=== PATIENT | female | born 1980 | race Caucasian/White ===

== ENCOUNTER 2022-04-13 14:23 | Emergency (ER) | payer OTHER, SELFPAY ==
[2022-04-13 16:03] VITALS: BP 133/81; PULSE 100; RESP 16; TEMP 37.1; O2SAT 99; BMI 23.4
--- NOTE | 2022-04-13 21:38 | ED_ITS ---
HPI - General Adult General Chief complaint: Skin/Abscess/Foreign Body Stated complaint: Staph infection Time Seen by Provider: 04/13/22 20:25 Source: patient Mode of arrival: ambulatory Limitations: no limitations History of Present Illness HPI narrative: 41-year-old female presents to ED for re-evaluation of left thigh any of redness and tenderness as in present since . Patient states she shaved and then noticed redness with a slight opening with drainage. Patient went to urgent care on Tuesday and she states the provider squeezed pus discharge from the opening with her hands give her doxycycline and no other antibiotics. No other antibiotics were given. Patient denies being on any control pills, any leg swelling, calf pain, chest pain, pleurisy recent surgery, recent long travel, or shortness of breath. Patient states area of infection still the same since started on doxycycline with no other antibiotics. patient denies pleurisy. Related Data Previous Rx's Medication Instructions Recorded cephalexin 500 mg capsule 500 mg PO QID 7 days #28 caps 04/13/22 naproxen 500 mg tablet 500 mg PO BID PRN pain 10 days #20 04/13/22 tabs oxycodone 5 mg capsule 5 mg PO TID PRN pain 3 days #9 caps 04/13/22 Allergies Allergy/AdvReac Type Severity Reaction Status Date / Time No Known Allergies Allergy Verified 04/13/22 16:03 Review of Systems Review of Systems: left thigh infection Yes all other systems are reviewed and are negative [facility] Social History Social History Advance Directives: No Advance Directives Information Provided: No Physical Exam ED Vital Signs: Vital Signs - 24 hr 04/13/22 16:03 Temperature 98.8 F Pulse Rate 100 Respiratory Rate 16 Blood Pressure 133/81 Pulse Oximetry 99 Oxygen Delivery Method Room Air BMI result Body Mass Index 23.4 Const General: cooperative, healthy appearing, comfortable, no acute distress, well developed, alert, awake and Physically active Orientation/consciousness: patient oriented x3 HENMT Head: Yes normal to inspection, Yes No palpable skull fracture present, Yes normocephalic, Yes atraumatic and No abrasion Eyes General: appearance normal, both eyes and all related structures Neck Neck: Yes normal visual inspection, Yes full ROM, Yes no lymphadenopathy, Yes no meningeal signs, Yes trachea midline, Yes supple, No anterior neck swelling and No tender Chest Chest palpation & inspection: normal inspection of the chest and normal palpation of entire chest wall Resp Effort & Inspection: normal respiratory effort and able to speak in complete sentences Auscultation: clear to auscultation bilaterally Cardio Jugular venous distension: no JVD Heart sounds: S1 normal heart sound present and S2 normal heart sound present GI Inspection: Yes normal to inspection and No abdominal wall ecchymosis Palpation (GI): Soft to palpation, not firm, nontender, no guarding and not rigid General: No CVA tenderness and Yes no CVA tenderness Back/Spine/Pelvis Back: no CVA tenderness, No CVA tenderness and No back tenderness Skin General skin exam: no rashes or lesions noted and elasticity normal Neuro General: patient oriented x3, gait normal, tone normal and no meningeal signs Cranial nerves: Yes CN's II-XII intact bilaterally Extrem Knee images: 1. Left medial inner thigh redness with opening that is negative for any active pus drainage. Positive for tenderness. Negative for any fluctuance. Bedside ultrasound negative for any abscess collection. Bedside ultrasound shows cobble stones the cellulitlic changes. Psych Appearance: grossly normal, well kempt and not disheveled Course Course Course Narrative: Infection skin cellulitis versus abscess Reevaluation(s) Reevaluation #1: Ultrasound does not show any collection diagnosis cellulitis. P. Patient informed to continue taking the doxycycline will be added Keflex. Patient's partner states he would [place] around the area and he was informed if redness spread beyond the [place] come back to the ER. Patient was informed of any worsening thigh pain, leg swelling, calf pain, chest pain, pleurisy, red streaks or shortness of breath to return to the ED immediately. They were educated on warm compress Time: 21:47 Medical Decision Making MDM Narrative Medical decision making narrative: Cellulitis Discharge Plan Discharge Clinical Impression: Cellulitis Patient Disposition: Home, Self-Care Instructions: Cellulitis (ED), Warm Compress or Soak (ED) Additional Instructions: Presently no indication for incision and drainage. You will be discharged with Keflex. Continue taking doxycycline. Recommend warm compress on area 4 times a day for 15 minutes. If redness spreads beyond [place] return to the ED immediately. Return to the ED immediately for any profuse pus discharge, foul odor, worsening redness, red streaks, leg swelling, calf pain, worsening pain, chest pain, shortness of breath, or any other concerning symptoms. Please follow-up with primary care provider Prescriptions: New cephalexin 500 mg capsule 500 mg PO QID 7 Days Qty: 28 0RF oxycodone 5 mg capsule 5 mg PO TID PRN (Reason: pain) 3 Days Qty: 9 0RF Rx Instructions: Partial Fill upon patient request. Side effect is drowsiness. Do not take at work or while driving. naproxen 500 mg tablet 500 mg PO BID PRN (Reason: pain) 10 Days Qty: 20 0RF Stand Alone Forms: Work/School Release Interventions: ED Discharge Assessment Last Done: 04/13/22 21:57 Discharge Date/Time: 04/13/22 21:57 Print Language: B[place]ian
[2022-04-13] MEDS: Ibuprofen 800 MG TABLET PO (21:56)
== END 2022-04-13 21:57 | disposition home or self-care (01) ==
PROVIDERS: Emergency Provider Internal Medicine
DX: L03.116 Cellulitis of left lower limb (principal); M79.652 Pain in left thigh
CPT/HCPCS: 99283; 99284

== ENCOUNTER 2025-02-17 21:38 | Emergency (ER) | payer OTHER, SELFPAY ==
[2025-02-17 21:39] VITALS: BP 118/75; PULSE 78; RESP 16; TEMP 36.6; O2SAT 96; BMI 25.0
[2025-02-18 01:14] LABS: MANUAL DIFF FLAG NO
[2025-02-18 01:16] LABS: Basophils Percent Auto 0.5 % (0-2); Eosinophils Absolute Auto 0.1 X10*3/uL (0.0-0.4); Eosinophils Percent Auto 0.9 % (0-4); Hematocrit 30.8 % (37.0-47.0); Hemoglobin 10.3 g/dl (12.0-16.0); Imm Gran Abs Auto 0.01 X10*3/uL (0.00-0.03); Imm Gran Pct Auto 0.2 % (0.0-0.4); Lymphocytes Absolute Auto 2.4 X10*3/uL (1.2-4.9); Lymphocytes Percent Auto 44.4 % (20-40); Mean Corpuscular HGB Conc 33.4 g/dl (31.0-35.0); Mean Corpuscular Hemoglobin 28.9 pg (27.0-33.0); Mean Corpuscular Volume 86.3 fL (80.0-98.0); Mean Platelet Volume 9.5 fL (9.4-12.3); Monocytes Absolute Auto 0.5 X10*3/uL (0.1-1.2); Monocytes Percent Auto 8.4 % (2-11); Neutrophils Absolute Auto 2.5 x10*3/uL (2.0-8.3); Neutrophils Percent Auto 45.6 % (45-73); Platelet Count 282 X10*3/uL (160-400); Red Blood Count 3.57 X10*6/uL (4.20-5.50); Red Cell Distribution Width 12.7 % (11.0-16.0); White Blood Count 5.5 X10*3/uL (4.8-10.8)
[2025-02-18 01:36] LABS: Alanine Aminotransferase 21 U/L (0-31); Albumin Level 3.6 g/dL (3.5-5.0); Anion Gap 11 (12-20); Aspartate Amino Transferase 27 U/L (5-31); Bilirubin Total 0.1 mg/dL (0.0-1.0); Blood Urea Nitrogen 15 mg/dL (9-16); C Reactive Protein 0.11 mg/dL (< or = 0.50); Calcium 8.4 mg/dL (8.4-10.2); Carbon Dioxide 25 mmol/L (22-29); Chloride 108 mmol/L (96-108); Creatinine Clr Calc Pharmacy 82.3; Estimated Glomerular Filt Rate > 60; Glucose Random 90 mg/dL (60-115); Potassium 4.1 mmol/L (3.3-5.1); Sodium 140 mmol/L (135-145); Total Protein 5.7 g/dL (6.5-8.0)
[2025-02-18 01:47] LABS: Erythrocyte Sedimentation Rate 11 MM/HR (0-20)
--- NOTE | 2025-02-18 01:50 | ED.HA ---
HPI - Headache General Chief Complaint: Headache Stated Complaint: neck pain/headache Time Seen by Provider: 02/18/25 00:33 Source: patient Mode of arrival: ambulatory Limitations: no limitations History of Present Illness ED Provider: HPI Narrative: Patient no significant past medical history been having pain in the right side of the head to the neck off and on for last 5 days was seen at [facility] yesterday workup was negative what was given Decadron and felt much better patient does have history of epilepsy but no seizures lately no history of any injury no earache no fever no chills Related Data Previous Rx's ?Medication ?Instructions ?Recorded cephalexin 500 mg capsule 500 mg PO QID 7 days #28 caps 04/13/22 naproxen 500 mg tablet 500 mg PO BID PRN pain 10 days #20 04/13/22 tabs oxycodone 5 mg capsule 5 mg PO TID PRN pain 3 days #9 caps 04/13/22 [id number]-pafucnjtrayzi-zaksrnib 1 tab PO Q6H PRN haeadace #20 tabs 02/18/25 50 mg-325 mg-40 mg tablet Allergies Allergy/AdvReac Type Severity Reaction Status Date / Time No Known Allergies Allergy Verified 02/17/25 21:46 Review of Systems Review of Systems: Yes all other systems are reviewed and are negative [facility] Social History Social History Smoked in Last 30 Days: No Advance Directives: No Advance Directives Information Provided: No Patient : No Physical Exam Vital Signs: Vital Signs: Last Vital Signs Temp 97.8 F 02/18/25 02:18 Pulse 84 02/18/25 02:18 Resp 16 02/18/25 02:18 BP 116/80 02/18/25 02:18 Pulse Ox 98 02/18/25 02:18 O2 Del Method Room Air 02/18/25 02:18 BMI result Body Mass Index 25.0 Appearance: Alert. Oriented X3. No acute distress. Eyes: PERRLA, No Nystagmus ENT: Pharynx normal. Oral Mucosa moist temporal artery nontender Neck: Normal inspection. Neck supple. Diffuse tenderness in the right sternocleidomastoid no lymph node palpable no mastoid tenderness CVS: Normal heart rate and rhythm. Pulses normal. Respiratory: No respiratory distress. Equal air entry bilateral, no wheezing/rales/rhonchi Abdomen: Soft and nontender. Bowel sounds are present, no mass palpable, no CVA tenderness Skin: Skin warm and dry. Normal skin color. Normal skin turgor. Extremities: No lower extremity edema. No calf tenderness Neuro: Oriented X 3. No motor deficit. No sensory deficit.No cerebellar signs , cranial nerves II-XII intact Medications Administered Discontinued Medications Generic Name Dose Route Start Last Admin Trade Name Freq PRN Reason Stop Dose Admin Acetaminophen/Butalbital/Caffeine 1 tab 02/18/25 01:55 02/18/25 02:10 Butalb/Acetamin/Caff 50/325/40 Tablet PO 02/18/25 01:56 1 tab ONCE ONE Administration Medical Decision Making Medical Decision Making [facility] Narrative: Patient nonspecific pain in the right side of the head likely migraine labs are stable will discharge patient home on Fioricet Differential Diagnosis Differential Diagnoses: The differential diagnosis associated with the presentation includes Temporal arteritis/migraine/neuralgia Lab Data [facility] Lab Attestation statement: I reviewed the patient's lab results. 02/18/25 01:09 02/18/25 01:09 Labs: Lab Results 02/18/25 Range/Units 01:09 WBC 5.5 (4.8-10.8) X10*3/uL RBC 3.57 L (4.20-5.50) X10*6/uL Hgb 10.3 L (12.0-16.0) g/dl Hct 30.8 L (37.0-47.0) % MCV 86.3 (80.0-98.0) fL MCH 28.9 (27.0-33.0) pg MCHC 33.4 (31.0-35.0) g/dl RDW 12.7 (11.0-16.0) % Plt Count 282 (160-400) X10*3/uL MPV 9.5 (9.4-12.3) fL Immature Gran % (Auto) 0.2 (0.0-0.4) % Neut % (Auto) 45.6 (45-73) % Lymph % (Auto) 44.4 H (20-40) % [place] % (Auto) 8.4 (2-11) % Eos % (Auto) 0.9 (0-4) % Baso % (Auto) 0.5 (0-2) % Lymph # (Auto) 2.4 (1.2-4.9) X10*3/uL [place] # (Auto) 0.5 (0.1-1.2) X10*3/uL Eos # (Auto) 0.1 (0.0-0.4) X10*3/uL Baso # (Auto) 0.0 (0.0-0.2) X10*3/uL Abs Immat Gran (auto) 0.01 (0.00-0.03) X10*3/uL Absolute Neuts (auto) 2.5 (2.0-8.3) x10*3/uL Absolute Nucleated RBC 0.000 (0.0-0.012) X10*3/uL Nucleated RBC % (auto) 0.0 (0.0-0.2) /100WBC ESR 11 (0-20) MM/HR Sodium 140 (135-145) mmol/L Potassium 4.1 (3.3-5.1) mmol/L Chloride 108 (96-108) mmol/L Carbon Dioxide 25 (22-29) mmol/L Anion Gap 11 L (12-20) BUN 15 (9-16) mg/dL Creatinine 0.71 (0.5-1.4) mg/dL Estim Creat Clear Calc 82.3 Estimated GFR > 60 Random Glucose 90 (60-115) mg/dL Calcium 8.4 (8.4-10.2) mg/dL Total Bilirubin 0.1 (0.0-1.0) mg/dL AST 27 (5-31) U/L ALT 21 (0-31) U/L Alkaline Phosphatase 39 (39-117) U/L C-Reactive Protein 0.11 (< or = 0.50) mg/dL Total Protein 5.7 L (6.5-8.0) g/dL Albumin 3.6 (3.5-5.0) g/dL Discharge Plan Discharge Clinical Impression: Migraine Patient Disposition: Home, Self-Care Instructions: Migraine Headache (ED) Additional Instructions: Likely have migraine headache Take medicine as prescribed and follow with your PCP Prescriptions: New rksbwtfqbi-naeriyjppnfnp-xcvi 50-325-40 mg tablet 1 tab PO Q6H PRN (Reason: haeadace) Qty: 20 0RF No Action cephalexin 500 mg capsule 500 mg PO QID 7 Days Qty: 28 0RF oxycodone 5 mg capsule 5 mg PO TID PRN (Reason: pain) 3 Days Qty: 9 0RF Rx Instructions: Partial Fill upon patient request. Side effect is drowsiness. Do not take at work or while driving. naproxen 500 mg tablet 500 mg PO BID PRN (Reason: pain) 10 Days Qty: 20 0RF Interventions: ED Discharge Assessment Last Done: 02/18/25 02:18 Discharge Date/Time: 02/18/25 02:21 Print Language: Citizen Of [place]
[2025-02-18 01:51] LABS: Alkaline Phosphatase 39 U/L (39-117)
[2025-02-18] MEDS: Butalb/Acetamin/Caff 50/325/40 TABLET 1 TAB PO (02:10)
[2025-02-18 02:18] VITALS: BP 116/80; PULSE 84; RESP 16; TEMP 36.6; O2SAT 98
== END 2025-02-18 02:21 | disposition home or self-care (01) ==
PROVIDERS: Emergency Provider Internal Medicine
DX: G43.909 Migraine, unspecified, not intractable, without status migrainosus (principal)
CPT/HCPCS: 36415; 80053; 85025; 85652; 86140; 99283; 99284

== ENCOUNTER 2025-02-25 13:20 | Emergency (ER) | payer OTHER, SELFPAY ==
--- NOTE | ~2025-02-25 | CT_ITS ---
EXAMINATION: CT CERVICAL SPINE WITHOUT CONTRAST CLINICAL INFORMATION: Right neck pain COMPARISON: None available. TECHNIQUE: Axial CT imaging was performed from skull base through T2. This CT examination was performed using dose optimization techniques as appropriate, variously including the following: *Automated exposure control *Adjustment of mA and/or kV according to patient size (this includes techniques or standardized protocols for targeted exams where dose is matched to indication/reason for exam; i.e. extremities or head) *Use of iterative reconstruction technique DLP: 256 mGY*cm FINDINGS: There is mild reversal of the normal cervical lordosis. No fractures are identified. There is no prevertebral soft tissue swelling. No degenerative changes are evident. CT/CT cervical spine wo IV con IMPRESSION: There is mild reversal of cervical lordosis. This can be related to degenerative changes, positioning, muscle spasm, or posterior soft tissue injury. Electronically signed by: Jarrod Landin MD 02/25/2025 05:17 PM EDT
--- NOTE | ~2025-02-25 | CT_ITS ---
EXAMINATION: CT HEAD WITHOUT CONTRAST CLINICAL INFORMATION: Headache for 10 days COMPARISON: None available. TECHNIQUE: Contiguous axial imaging was performed from the skull base to vertex without intravenous administration of contrast. This CT examination was performed using dose optimization techniques as appropriate, variously including the following: *Automated exposure control *Adjustment of mA and/or kV according to patient size (this includes techniques or standardized protocols for targeted exams where dose is matched to indication/reason for exam; i.e. extremities or head) *Use of iterative reconstruction technique DLP: 600 mGY*cm FINDINGS: There is no acute ischemic change. There is no intracranial hemorrhage. There is no mass-effect or midline shift. Basal cisterns and ventricles are within normal limits for age/cerebral volume. Orbits are symmetrical and unremarkable. Paranasal sinuses and mastoid air cells are pneumatized. There are no bony abnormalities. CT/CT head/brain wo IV con IMPRESSION: No acute intracranial abnormality. Electronically signed by: Jarrod Landin MD 02/25/2025 05:05 PM EDT
[2025-02-25 13:36] VITALS: BP 101/59; PULSE 84; RESP 18; TEMP 36.8; O2SAT 98; BMI 23.5
--- NOTE | 2025-02-25 13:38 | ED.GENADULT ---
HPI - General Adult General Chief complaint: General Medical Stated complaint: neck pain Time Seen by Provider: 02/25/25 15:38 Source: patient, RN notes reviewed and old records reviewed Mode of arrival: ambulatory Limitations: no limitations History of Present Illness ED Provider: Chantel FARR narrative: Patient is a 44-year-old female with history of epilepsy on depakote, asthma presenting to the ED with complaint of right sided neck pain radiating to head for the past week to ten days. Also reports history of zoster with right sided symptoms, unsure if that is related to her current symptoms. Denies rash, denies ear pain. Denies history of headaches or migraines. Denies recent fall or other trauma. Has been seizure free for years. Seen at [place] on 02/16, per MD note at that visit patient also complained of sore throat and was diagnosed with viral pharyngitis, treated with decadron and discharged. Patient then presented to this ED on 02/18, and was treated for migraine, no imaging since onset of symptoms. Denies worse headache of life, denies worst at onset. Not worse upon waking or with standing. Denies dizziness, blurred or double vision. Denies nausea/vomiting. She describes her pain as brief, sharp, shooting pains. MD complaint: head and neck pain Onset (ago): week(s) Related Data Previous Rx's ?Medication ?Instructions ?Recorded cephalexin 500 mg capsule 500 mg PO QID 7 days #28 caps 04/13/22 naproxen 500 mg tablet 500 mg PO BID PRN pain 10 days #20 04/13/22 tabs oxycodone 5 mg capsule 5 mg PO TID PRN pain 3 days #9 caps 04/13/22 pnlkewkwfs-oavlhsavoepaz-pazupnft 1 tab PO Q6H PRN haeadace #20 tabs 02/18/25 50 mg-325 mg-40 mg tablet prednisone 10 mg tablet See Rx Instructions .Route 02/25/25 .COMPLEX #15 tabs Allergies Allergy/AdvReac Type Severity Reaction Status Date / Time No Known Allergies Allergy Verified 02/25/25 13:38 Review of Systems Review of Systems: As per HPI Yes all other systems are reviewed and are negative Constitutional: Constitutional: Reports as per HPI PMFSH Social History Social History Advance Directives: Yes Advance Directives Information Provided: Yes Advance Directives on File: No Physical Exam ED Vital Signs: Vital Signs - 24 hr 02/25/25 13:36 02/25/25 16:56 Temperature 98.2 F 98.2 F Pulse Rate 84 83 Respiratory Rate 18 16 Blood Pressure 101/59 L 113/58 L Pulse Oximetry 98 100 Oxygen Delivery Method Room Air Room Air BMI result Body Mass Index 23.5 Vital signs have been reviewed and appear to be correct. Blood pressure normal. Heart rate normal. Respiratory rate normal. Temperature normal. Oxygen saturation normal. Const General: cooperative, healthy appearing and no acute distress Orientation/consciousness: oriented to person, oriented to place, oriented to time and patient oriented x3 Limitations: no limitations HENMT Head: Yes normocephalic and Yes atraumatic Ears: external ears normal, TM's normal bilaterally and EAC's normal General nose exam: Normal external nose present Face and sinus: Yes face symmetric Mouth: oropharynx normal and moist mucous membranes Throat: Yes posterior oropharynx normal and Yes uvula midline Eyes General: appearance normal, both eyes and all related structures Pupils: Equal, round and reactive pupils present EOM: EOMs intact bilaterally Neck Neck: Yes normal visual inspection, Yes no meningeal signs and Yes supple Lymphatic: no lymphadenopathy noted Resp Effort & Inspection: normal respiratory effort and able to speak in complete sentences Auscultation: clear to auscultation bilaterally Cardio Rate: regular rate Rhythm: regular rhythm Heart sounds: S1 normal heart sound present and S2 normal heart sound present GI Palpation (GI): Soft to palpation and nontender Auscultation: normoactive bowel sounds General: Yes no CVA tenderness Back/Spine/Pelvis Back: no CVA tenderness Skin General skin exam: elasticity normal and turgor normal Neuro General: oriented to person, oriented to place, oriented to time, patient oriented x3, gait normal, tone normal, moves all extremities, Normal light touch and pain sensation, no meningeal signs, no focal motor deficits, CN's II-XI intact bilaterally and deep tendon reflexes 2+ bilaterally Cranial nerves: Yes Equal, round and reactive pupils present Cognition (Neuro): normal cognition Motor exam (neuro): 5/5 motor strength present throughout, Normal motor muscle tone present throughout and Motor abnormalities not present Extrem General: Yes full ROM, Yes no pedal edema and Yes no calf tenderness Psych Mental Status: mental status grossly normal Affect: normal affect Thought process: Normal thought process present Course Course Course Narrative: RME performed by Eunice Anguiano PA-C. Patient is a 44 year old assigned female at presenting to the emergency department with neck and head pain. Patient states she has been dealing with this since at least February 13 and it isn't getting better. Detailed physical exam and review of systems are deferred to the clinician oncology. Labs ordered. Patient placed back in the waiting room pending room availability and results. Medications Administered Discontinued Medications Generic Name Dose Route Start Last Admin Trade Name Freq PRN Reason Stop Dose Admin Diphenhydramine HCl 25 mg 02/25/25 16:10 02/25/25 16:36 Diphenhydramine Hcl 50 Mg/Ml Vial IVPUSH 02/25/25 16:11 25 mg ONCE ONE Administration Sodium Chloride 1,000 mls @ 999 mls/hr 02/25/25 16:15 02/25/25 16:36 Ns IV 02/25/25 17:15 999 mls/hr .Q1H1M MARCI Administration Ketorolac Tromethamine 15 mg 02/25/25 16:10 02/25/25 16:36 Ketorolac Tromethamine 15 Mg/Ml Vial IVPUSH 02/25/25 16:11 15 mg ONCE ONE Administration Metoclopramide HCl 10 mg 02/25/25 16:10 02/25/25 16:36 Metoclopramide Hcl 10 Mg/2 Ml Vial IVPUSH 02/25/25 16:11 10 mg ONCE ONE Administration Medical Decision Making Medical Decision Making MDM Narrative: Patient is a 44-year-old female with history of epilepsy on depakote, asthma presenting to the ED with complaint of right sided neck pain radiating to head for the past week to ten days. On exam patient is awake, A+Ox3, VS WNL, afebrile, normal neurological exam without focal deficits, physical exam findings as above. Given reported symptoms and physical exam findings, initial differential includes but is not limited to cervical strain, cervical radiculopathy, tension headache, migraine, viral illness, mononucleosis. Do not suspect ICH/SAH, acute glaucoma, carotid artery dissection, CO poisoning, encephalitis, meningitis, preeclampsia, pseudotumor, temporal arteritis/giant cell arteritis. Labs unremarkable. Given that this is patient's third ED visit since onset, will obtain CT head and c-spine. IV fluids, reglan, benadryl and toradol ordered. CT head and c-spine notable for no evidence of ICH, fracture. My interpretation is in agreement with the radiologist's interpretation. Symptoms improved with medication in the ED, however, patient reports the most relief she has received since onset was after steroids. Will d/c on tapering course of prednisone. Advised follow up with PCP as she may require PT for full resolution of symptoms. Return precautions discussed. Patient verbalized understanding of and agreement with plan. Differential Diagnosis Differential Diagnoses: The differential diagnosis associated with the presentation includes As per [facility] Admission/Observation Consideration of admission/observation: Escalation of care including admission/observation considered Patient would have been admitted to the hospital had their work up had any findings where hospital admission was appropriate and their clinical presentation warranted hospital admission. Lab Data [facility] Lab Attestation statement: I reviewed the patient's lab results. As per [facility] 02/25/25 13:47 02/25/25 13:47 Labs: Lab Results 02/25/25 02/25/25 Range/Units 13:47 16:28 WBC 4.6 L (4.8-10.8) X10*3/uL RBC 4.09 L (4.20-5.50) X10*6/uL Hgb 11.8 L (12.0-16.0) g/dl Hct 35.2 L (37.0-47.0) % MCV 86.1 (80.0-98.0) fL MCH 28.9 (27.0-33.0) pg MCHC 33.5 (31.0-35.0) g/dl RDW 12.7 (11.0-16.0) % Plt Count 356 D (160-400) X10*3/uL MPV 9.1 L (9.4-12.3) fL Immature Gran % (Auto) 0.2 (0.0-0.4) % Neut % (Auto) 51.0 (45-73) % Lymph % (Auto) 38.2 (20-40) % [place] % (Auto) 8.4 (2-11) % Eos % (Auto) 1.3 (0-4) % Baso % (Auto) 0.9 (0-2) % Lymph # (Auto) 1.8 (1.2-4.9) X10*3/uL [place] # (Auto) 0.4 (0.1-1.2) X10*3/uL Eos # (Auto) 0.1 (0.0-0.4) X10*3/uL Baso # (Auto) 0.0 (0.0-0.2) X10*3/uL Abs Immat Gran (auto) 0.01 (0.00-0.03) X10*3/uL Absolute Neuts (auto) 2.4 (2.0-8.3) x10*3/uL Absolute Nucleated RBC 0.000 (0.0-0.012) X10*3/uL Nucleated RBC % (auto) 0.0 (0.0-0.2) /100WBC ESR 6 (0-20) MM/HR Sodium 140 (135-145) mmol/L Potassium 4.4 (3.3-5.1) mmol/L Chloride 106 (96-108) mmol/L Carbon Dioxide 28 (22-29) mmol/L Anion Gap 10 L (12-20) BUN 4 L (9-16) mg/dL Creatinine 0.68 (0.5-1.4) mg/dL Estim Creat Clear Calc 77.4 Estimated GFR > 60 Random Glucose 78 (60-115) mg/dL Calcium 8.5 (8.4-10.2) mg/dL Magnesium 2.0 (1.6-2.6) mg/dL Total Bilirubin 0.1 (0.0-1.0) mg/dL AST 22 (5-31) U/L ALT 14 (0-31) U/L Alkaline Phosphatase 49 (39-117) U/L C-Reactive Protein < 0.04 (< or = 0.50) mg/dL Total Protein 6.2 L (6.5-8.0) g/dL Albumin 3.9 (3.5-5.0) g/dL Beta HCG, Quant < 2 mIU/mL Monoscreen Negative (Negative) Independent Interpretation I performed an independent interpretation of an: CT Scan Interpretation: CT head and c-spine notable for no evidence of ICH, fracture. Radiology Impression Discussion of test interpretation with radiology: I have reviewed the radiologist's reading. Radiologist Impression: CT/CT head/brain wo IV con IMPRESSION: No acute intracranial abnormality. CT/CT cervical spine wo IV con IMPRESSION: There is mild reversal of cervical lordosis. This can be related to degenerative changes, positioning, muscle spasm, or posterior soft tissue injury. External Record Review External record reviewed: Inpatient record, Office record and Outpatient record Prescription Management I considered prescription management with: Other Discharge Plan Discharge Clinical Impression: Cervical radiculopathy Patient Disposition: Home, Self-Care Instructions: Cervical Radiculopathy (ED) Additional Instructions: You were evaluated in the emergency department with complaint of neck pain and headache. Your imaging did not show any evidence of bleeding in your brain, a fracture or other concerning findings. Your labs were reassuring and you tested negative for mono. Your pain is likely related to nerve inflammation. We recommend taking 600mg ibuprofen or 650mg Tylenol. If necessary, you can alternate these medications every three hours. For example, at noon take Tylenol, then at 3:00 take ibuprofen, then at 6:00 take Tylenol, etc. You are also being prescribed a tapering course of prednisone which is a steroid to decrease inflammtion. You should follow up with your primary care provider as you may require physical therapy to improve your symptoms. Return to the emergency department if you develop worsening neck pain or stiffness, new weakness, numbness, or tingling to your arm, severe headaches, or any other concerning symptoms. Prescriptions: New prednisone 10 mg tablet See Rx Instructions .ROUTE .COMPLEX Qty: 15 0RF Rx Instructions: 50mg (5 tabs) x1 day, then 40 mg (4 tabs) x1 day, then 30 mg (3 tabs) x1 day, then 20 mg (2 tabs) times 1 day, then 10 mg (1 tab) x1 day No Action cephalexin 500 mg capsule 500 mg PO QID 7 Days Qty: 28 0RF oxycodone 5 mg capsule 5 mg PO TID PRN (Reason: pain) 3 Days Qty: 9 0RF Rx Instructions: Partial Fill upon patient request. Side effect is drowsiness. Do not take at work or while driving. naproxen 500 mg tablet 500 mg PO BID PRN (Reason: pain) 10 Days Qty: 20 0RF xpkhwlaeve-ewyxnzhemornz-odmq 50-325-40 mg tablet 1 tab PO Q6H PRN (Reason: haeadace) Qty: 20 0RF Print Language: Citizen Of [place]
[2025-02-25 13:50] LABS: MANUAL DIFF FLAG NO
[2025-02-25 13:52] LABS: Basophils Percent Auto 0.9 % (0-2); Eosinophils Absolute Auto 0.1 X10*3/uL (0.0-0.4); Eosinophils Percent Auto 1.3 % (0-4); Hematocrit 35.2 % (37.0-47.0); Hemoglobin 11.8 g/dl (12.0-16.0); Imm Gran Abs Auto 0.01 X10*3/uL (0.00-0.03); Imm Gran Pct Auto 0.2 % (0.0-0.4); Lymphocytes Absolute Auto 1.8 X10*3/uL (1.2-4.9); Lymphocytes Percent Auto 38.2 % (20-40); Mean Corpuscular HGB Conc 33.5 g/dl (31.0-35.0); Mean Corpuscular Hemoglobin 28.9 pg (27.0-33.0); Mean Corpuscular Volume 86.1 fL (80.0-98.0); Mean Platelet Volume 9.1 fL (9.4-12.3); Monocytes Absolute Auto 0.4 X10*3/uL (0.1-1.2); Monocytes Percent Auto 8.4 % (2-11); Neutrophils Absolute Auto 2.4 x10*3/uL (2.0-8.3); Platelet Count 356 X10*3/uL (160-400); Red Blood Count 4.09 X10*6/uL (4.20-5.50); Red Cell Distribution Width 12.7 % (11.0-16.0); White Blood Count 4.6 X10*3/uL (4.8-10.8)
[2025-02-25 14:09] LABS: Alanine Aminotransferase 14 U/L (0-31); Albumin Level 3.9 g/dL (3.5-5.0); Alkaline Phosphatase 49 U/L (39-117); Anion Gap 10 (12-20); Aspartate Amino Transferase 22 U/L (5-31); Bilirubin Total 0.1 mg/dL (0.0-1.0); Blood Urea Nitrogen 4 mg/dL (9-16); C Reactive Protein < 0.04 mg/dL (< or = 0.50); Calcium 8.5 mg/dL (8.4-10.2); Carbon Dioxide 28 mmol/L (22-29); Chloride 106 mmol/L (96-108); Creatinine Clr Calc Pharmacy 77.4; Estimated Glomerular Filt Rate > 60; Glucose Random 78 mg/dL (60-115); Potassium 4.4 mmol/L (3.3-5.1); Sodium 140 mmol/L (135-145); Total Protein 6.2 g/dL (6.5-8.0)
[2025-02-25 14:36] LABS: Erythrocyte Sedimentation Rate 6 MM/HR (0-20)
[2025-02-25] MEDS: 0.9 % Sodium Chloride 1,000 ML 999 ML IV (16:36)
[2025-02-25] MEDS: diphenhydrAMINE HCL 50 MG/ML VIAL 25 MG IVPUSH (16:36)
[2025-02-25] MEDS: Metoclopramide HCl 10 MG/2 ML VIAL IVPUSH (16:36)
[2025-02-25] MEDS: Ketorolac Tromethamine 15 MG/ML VIAL IVPUSH (16:36)
--- NOTE | 2025-02-25 16:48 | PC.NURSE ---
IV established, medicated per the MAR. awaiting ct scan results. resting quietly w/ fluids infusing
[2025-02-25 16:53] LABS: HCG Quantitative < 2 mIU/mL
[2025-02-25 16:56] VITALS: BP 113/58; PULSE 83; RESP 16; TEMP 36.8; O2SAT 100
[2025-02-25 17:09] LABS: Monotest Negative (Negative)
[2025-02-25 18:28] VITALS: BP 113/58; PULSE 83; RESP 16; TEMP 36.8; O2SAT 100
== END 2025-02-25 18:15 | disposition home or self-care (01) ==
PROVIDERS: Physician Assistant Medical; Registered Nurse Emergency; Emergency Provider Emergency Medicine Emergency Medical Services
DX: M54.12 Radiculopathy, cervical region (principal); M54.2 Cervicalgia; Z79.899 Other long term (current) drug therapy
CPT/HCPCS: 36415; 70450; 72125; 80053; 83735; 84702; 85025; 85652; 86140; 86308; 96361; 96374; 96375; 99284; 99285; J1200; J1885; J2765

== ENCOUNTER → 2025-02-25 16:10 | Outpatient (BNV) | payer OTHER, SELFPAY | PROVIDERS: Emergency Provider Emergency Medicine Emergency Medical Services; Visit Provider Radiology Diagnostic Radiology | DX: M54.2 Cervicalgia (principal); R51.9 Headache, unspecified | CPT/HCPCS: 70450; 72125 ==